=== PATIENT | male | born 1995 | race African-American/Black ===

== ENCOUNTER 2017-09-14 19:39 | Emergency (ER) | payer SELFPAY ==
[2017-09-14 19:41] VITALS: BP 145/67; PULSE 70; RESP 16; TEMP 98.9; O2SAT 96
--- NOTE | 2017-09-14 20:20 | RADRPT ---
EXAM DATE/TIME: 09/14/2017 20:10 [place] COMPARISON: No previous studies available for comparison. INDICATIONS : Cough for 2 months. MEDICAL HISTORY : None. SURGICAL HISTORY : None. ENCOUNTER: Initial ACUITY: 2 months PAIN SCORE: 0/10 LOCATION: chest FINDINGS: PA and lateral views of the chest demonstrate the lungs to be symmetrically aerated without evidence of mass, infiltrate or effusion. The cardiomediastinal contours are unremarkable. Osseous structure s are intact. CONCLUSION: Normal examination for a patient of this age. Tom Conte MD on September 14, 2017 at 20:17 Board Certified Radiologist. This report was verified electronically.
--- NOTE | 2017-09-14 21:42 | PD ---
HPI Chief Complaint: Cold / Flu Symptoms Time Seen by Provider: 21:28 Travel History International Travel<30 days: No Contact w/Intl Traveler<30days: No Traveled to known affect area: No History of Present Illness HPI Patient is a 22-year-old male presenting to the emergency prompt for evaluation of a cough. 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 He denies any fever, chills, shortness of breath, wheezing, chest pain. He does report a history of asthma as a child. He further denies any nasal congestion. Symptom onset was gradual, there is no alleviating factors to this point. Symptoms are exacerbated at night. He has no other complaints at this time. He has been taking Hilaria [id number] sporadically for the last week. [facility] Past Medical History Asthma: Yes Diminished Hearing: No Past Surgical History Surgical History: No Previous Surgery Social History Alcohol Use: No Tobacco Use: No Substance Use: No Allergies-Medications (Allergen,Severity, Reaction): Coded Allergies: No Known Allergies (Unverified Adverse Reaction, Unknown, 09/14/17) Reported Meds & Prescriptions Reported Meds & Active Scripts Active Ventolin Hfa 18 GM Inh (Albuterol Sulfate) 90 Mcg/Act Aer 2 Puff INH Q4-6H PRN Singulair (Montelukast Sodium) 10 Mg Tab 10 Mg PO HS Review of Systems Except as stated in HPI: all other systems reviewed are Neg General / Constitutional: No: Fever HENT: No: Headaches Cardiovascular: No: Chest Pain or Discomfort Respiratory: Positive: Cough, No: Shortness of Breath, Wheezing Physical Exam Narrative GENERAL: Well-developed, well-nourished, alert male. Resting comfortably in no acute distress. SKIN: Warm and dry. HEAD: Atraumatic. Normocephalic. EYES: Pupils equal and round. No scleral icterus. No injection or drainage. ENT: No nasal bleeding or discharge. Mucous membranes pink and moist. NECK: Trachea midline. No JVD. CARDIOVASCULAR: Regular rate and rhythm. RESPIRATORY: No accessory muscle use. Clear to auscultation. Breath sounds equal bilaterally. GASTROINTESTINAL: Abdomen soft, non-tender, nondistended. Hepatic and splenic margins not palpable. MUSCULOSKELETAL: Extremities without clubbing, cyanosis, or edema. No obvious deformities. NEUROLOGICAL: Awake and alert. No obvious cranial nerve deficits. Motor grossly within normal limits. Five out of 5 muscle strength in the arms and legs. Normal speech. PSYCHIATRIC: Appropriate mood and affect; insight and judgment normal. Data Data Last Documented VS Vital Signs Date Time Temp Pulse Resp B/P (MAP) Pulse Ox O2 Delivery O2 Flow Rate FiO2 09/14/17 19:41 98.9 70 16 145/67 (93) 96 Room Air Orders Orders Chest, Pa & Lat (09/14/17 ) MDM Medical Decision Making Medical Screen Exam Complete: Yes Emergency Medical Condition: Yes Interpretation(s) Last Impressions Chest X-Ray 09/14/17 0000 Signed Impressions: Service Date/Time: Thursday, September 14, 2017 20:10 - CONCLUSION: Normal examination for a patient of this age. Tom Conte MD Vital Signs Date Time Temp Pulse Resp B/P (MAP) Pulse Ox O2 Delivery O2 Flow Rate FiO2 09/14/17 19:41 98.9 70 16 145/67 (93) 96 Room Air Differential Diagnosis Bronchitis versus pneumonia versus asthma versus URI versus bronchospasms versus other Narrative Course Patient is a well-appearing 22-year-old male presenting for evaluation of dry cough for the last 2 months. Patient's vital signs are stable, chest x-ray was ordered while in triage and is negative for acute abnormality. Symptoms appear consistent with bronchospasms likely allergic in nature. Patient does have a history of asthma. At this point patient will be provided with a prescription for Singulair as well as an albuterol inhaler. He is encouraged to follow-up with his clinic. He was also provided with a flyer for them. He was encouraged to return to emergency department for any new or worsening symptoms. Patient verbalized understanding of instructions. Patient is stable for discharge. Diagnosis Primary Impression: Cough due to bronchospasm Additional Impression: Dry cough Referrals: [facility] Patient Instructions: Bronchospasm (ED), General Instructions Departure Forms: Tests/Procedures, Work Release Enter return to work date: Sep 15, 2017 Additional Instructions: Follow-up with a primary doctor or at the rust Medications as directed Return to emergency department for any new or worsening symptoms Med/Other Pt SpecificInfo: Prescription(s) given Scripts Albuterol 18 GM Inh (Ventolin Hfa 18 GM Inh) 90 Mcg/Act Aer 2 PUFF INH Q4-6H Y for SHORTNESS OF BREATH, #1 INHALER 0 Refills Prov: Ellie Myers 09/14/17 Montelukast (Singulair) 10 Mg Tab 10 MG PO HS, #30 TAB 0 Refills Prov: Ellie Myers 09/14/17 Disposition: 01 DISCHARGE HOME Condition: Stable Ellie Myers Sep 14, 2017 21:42
[2017-09-14] MEDS ORDERED: VENTAER INH (21:49)
[2017-09-14] MEDS ORDERED: MONT10TA2 PO (21:49)
== END 2017-09-14 22:01 | disposition home or self-care (01) ==
LOC: NEPK 19:39
DX: R05 Cough (principal)
CPT/HCPCS: 71046; 99283